=== PATIENT | male | born 1945 | race Caucasian/White ===

== ENCOUNTER 2019-10-20 20:23 | Inpatient (IN) ==
[2019-10-20] MEDS ORDERED: ACETAMINOPHEN 325 MG TABLET PO PRN (23:42)
[2019-10-21] MEDS ORDERED: ALBUTEROL/IPRATROPIUM 3 ML NEB RESP TX PRN (00:10)
[2019-10-21 01:00] LABS: Basophils % 0.1 % (0.0-0.8); Hematocrit 38.7 VOL% (42.0-52.0); Hemoglobin 12.5 GM/DL (14.0-18.0); Immature Granulocytes % 0.6 %; Immature Granulocytes Absolute 0.12 #; Lymphocytes # 0.6 10*3/uL (1.4-4.0); Mean Corpuscular HGB Conc 32.3 GM/DL (32-36); Mean Platelet Volume 9.1 FL (9.6-12.0); Monocytes % 5.3 % (1.7-12.7); Platelet Count 237 T/CUMM (130-400); Red Blood Count 3.87 MC/CUMM (3.8-5.5); Red Cell Distribution Width 13.6 % (9.3-17.3); White Blood Count 19.5 T/CUMM (4-12)
[2019-10-21] MEDS: cefTRIAXone 2,000 MG in SYRINGE 1 EACH IV SCH (01:07)
[2019-10-21] MEDS: ONDANSETRON 4 MG/2 ML VIAL IV PRN ×3 (01:17→20:43)
[2019-10-21 01:23] LABS: Albumin 1.6 G/DL (3.4-5.0); Bilirubin,Total 0.4 MG/DL (0.2-1.0); Calcium 7.6 MG/DL (8.5-10.1); Osmolality,Calculated 283.4 MOS/KG (273-304); Total Protein 5.3 G/DL (6.4-8.3)
[2019-10-21 02:49] LABS: Lymphocytes 5 % (20-55); Platelet Estimate Normal; Segmented Neutrophils 90 % (50-85); Total Cells Counted 100
[2019-10-21 03:51] LABS: Amorphous Crystals,Urine Occasional /HPF (Few); Apearance,Urine CLOUDY (Clear); Bilirubin,Urine Negative (Negative); Blood, Urine Large mg/dL (Negative); Glucose,Urine (UA) Negative (Negative); Ketones,Urine 5 mg/dL (Negative); Mucus,Urine Moderate /LPF (Occasional); Nitrite,Urine Negative (Negative); Protein,Urine 100 MG/DL; RBC,Urine 1047 /HPF (0-4); Squamous Epithelial Cell,Urine Occasional /HPF (0-10); Urine Color Amber (Yellow); Urine Specific Gravity 1.015 (1.001-1.035); Urine Urobilinogen < 2.0 EU/DL (0.2-1.0); WBC,Urine 269 /HPF (0-6)
[2019-10-21 03:54] LABS: Protein/Creatinine Ratio,Urine 5.6 RATIO
[2019-10-21] MEDS ORDERED: LACTATED RINGERS 1,000 ML IV SCH (11:00)
[2019-10-21] MEDS ORDERED: NEOMYCIN/POLYMYXIN IRRIG SOLN 1 ML AMP BLADDERIRR ONE (11:05)
[2019-10-21] MEDS ORDERED: PROPOFOL 200 MG/20 ML VIAL IV ONE (12:13)
[2019-10-21] MEDS ORDERED: SEVOFLURANE 1 UNIT/15 MINUTE INH ONE (12:14)
[2019-10-21] MEDS ORDERED: ONDANSETRON 4 MG/2 ML VIAL ONE (12:14)
[2019-10-21] MEDS ORDERED: MIDAZOLAM 2 MG/2 ML VIAL ONE (12:14)
[2019-10-21] MEDS ORDERED: DEXAMETHASONE 4 MG/1 ML VIAL ONE (12:14)
[2019-10-21] MEDS ORDERED: LIDOCAINE 2% 5 ML VIAL ONE (12:14)
[2019-10-21] MEDS ORDERED: fentaNYL 100 MCG/2 ML VIAL ONE (12:14)
[2019-10-21] MEDS: PANTOPRAZOLE 40 MG TABLET PO SCH (14:30)
[2019-10-21] MEDS: OXYBUTYNIN XL 15 MG TABLET PO SCH (14:31)
[2019-10-21] MEDS: DUTASTERIDE 0.5 MG CAPSULE PO SCH (14:31)
[2019-10-21] MEDS ORDERED: DOCUSATE SODIUM 100 MG CAPSULE PO PRN (21:06)
[2019-10-21] MEDS ORDERED: MIRTAZAPINE 30 MG TABLET PO SCH (21:30)
[2019-10-22] MEDS: cefTRIAXone 2,000 MG in SYRINGE 1 EACH IV SCH (01:00)
[2019-10-22] MEDS ORDERED: PROMETHAZINE INJ 12.5 MG in SODIUM CHLORIDE 0.9% 50 ML IV ONE (05:29)
[2019-10-22 05:53] LABS: Basophils % 0.1 % (0.0-0.8); Hematocrit 35.2 VOL% (42.0-52.0); Hemoglobin 11.5 GM/DL (14.0-18.0); Immature Granulocytes Absolute 0.12 #; Lymphocytes # 0.7 10*3/uL (1.4-4.0); Lymphocytes % 5.6 % (21.2-54.2); Mean Corpuscular HGB Conc 32.7 GM/DL (32-36); Mean Corpuscular Volume 98.9 FL (87-102); Mean Platelet Volume 9.1 FL (9.6-12.0); Monocytes % 6.4 % (1.7-12.7); Neutrophils % 86.9 % (38.7-73.9); Platelet Count 283 T/CUMM (130-400); Red Blood Count 3.56 MC/CUMM (3.8-5.5); Red Cell Distribution Width 13.5 % (9.3-17.3); White Blood Count 11.8 T/CUMM (4-12)
[2019-10-22] MEDS ORDERED: PROMETHAZINE 25 MG TABLET PO PRN (07:48)
[2019-10-22] MEDS ORDERED: ROSUVASTATIN 10 MG TABLET PO SCH (09:00)
[2019-10-22] MEDS ORDERED: DUTASTERIDE 0.5 MG CAPSULE PO SCH (09:00)
[2019-10-22] MEDS ORDERED: BACLOFEN 10 MG TABLET PO SCH (09:00)
[2019-10-22] MEDS ORDERED: AMITRIPTYLINE 10 MG TABLET PO SCH (09:00)
[2019-10-22] MEDS ORDERED: CHOLECALCIFEROL 1,000 UNIT TABLET PO SCH (09:00)
[2019-10-22] MEDS: DUTASTERIDE 0.5 MG CAPSULE PO SCH (09:32)
[2019-10-22] MEDS: OXYBUTYNIN XL 15 MG TABLET PO SCH (09:33)
[2019-10-22] MEDS: PANTOPRAZOLE 40 MG TABLET PO SCH (09:33)
[2019-10-22] MEDS ORDERED: POTASSIUM CHLORIDE 20 MEQ TABLET PO ONE (10:11)
[2019-10-22] MEDS ORDERED: cephALEXin 500 MG CAPSULE PO SCH (12:00)
[2019-10-22 12:25] VITALS: BP 137/81
== END 2019-10-22 15:58 | disposition home health service (06) | DRG 659 ==
LOC: SUATTDRO 21:49 → N.TELEN 21:49
PROVIDERS: ADMIT Internal Medicine; ATTEND Family Medicine

== ENCOUNTER 2019-11-06 19:16 | Inpatient (IN) ==
[2019-11-07] MEDS ORDERED: ZALEPLON 5 MG CAPSULE PO PRN (00:40)
[2019-11-07] MEDS ORDERED: ACETAMINOPHEN 325 MG TABLET PO PRN (00:40)
[2019-11-07] MEDS ORDERED: MORPHINE 4 MG/1 ML VIAL IV PRN (00:40)
[2019-11-07] MEDS ORDERED: SODIUM CHLORIDE 0.9% 1,000 ML IV SCH (01:00)
[2019-11-07] MEDS ORDERED: cefTRIAXone 1,000 MG in SYRINGE 1 EACH IV SCH (01:00)
[2019-11-07 01:30] LABS: Basophils % 0.2 % (0.0-0.8); Eosinophils # 0.1 10*3/uL (0.0-0.87); Eosinophils % 0.6 % (0.00-10.9); Hematocrit 35.1 VOL% (42.0-52.0); Hemoglobin 11.3 GM/DL (14.0-18.0); Immature Granulocytes % 0.7 %; Immature Granulocytes Absolute 0.09 #; Lymphocytes % 7.6 % (21.2-54.2); Mean Corpuscular HGB Conc 32.2 GM/DL (32-36); Mean Corpuscular Volume 98.6 FL (87-102); Mean Platelet Volume 9.2 FL (9.6-12.0); Monocytes % 5.1 % (1.7-12.7); Neutrophils % 85.8 % (38.7-73.9); Platelet Count 244 T/CUMM (130-400); Red Blood Count 3.56 MC/CUMM (3.8-5.5); Red Cell Distribution Width 13.7 % (9.3-17.3); White Blood Count 13.1 T/CUMM (4-12)
[2019-11-07] MEDS: ONDANSETRON 4 MG/2 ML VIAL IV PRN ×2 (01:45→08:23)
[2019-11-07 01:49] LABS: Calcium 8.1 MG/DL (8.5-10.1)
[2019-11-07 05:44] LABS: Basophils % 0.2 % (0.0-0.8); Eosinophils % 0.3 % (0.00-10.9); Hematocrit 34.7 VOL% (42.0-52.0); Hemoglobin 11.3 GM/DL (14.0-18.0); Immature Granulocytes % 0.7 %; Immature Granulocytes Absolute 0.08 #; Lymphocytes # 1.2 10*3/uL (1.4-4.0); Lymphocytes % 10.3 % (21.2-54.2); Mean Corpuscular HGB Conc 32.6 GM/DL (32-36); Mean Corpuscular Volume 97.2 FL (87-102); Monocytes % 5.5 % (1.7-12.7); Platelet Count 226 T/CUMM (130-400); Red Blood Count 3.57 MC/CUMM (3.8-5.5); Red Cell Distribution Width 13.5 % (9.3-17.3); White Blood Count 11.5 T/CUMM (4-12)
[2019-11-07 06:02] LABS: Alanine Aminotransferase < 9 U/L (16-61); Albumin 2.1 G/DL (3.4-5.0); Alkaline Phosphatase 48 U/L (45-117); Aspartate Amino Transferase 13 U/L (0-37); Blood Urea Nitrogen 23 MG/DL (7-18); Calcium 7.9 MG/DL (8.5-10.1); Estimated Glom Filtration Rate 129 ML/MIN; Glucose 67 MG/DL (74-106); Osmolality,Calculated 276.7 MOS/KG (273-304); Total Protein 5.4 G/DL (6.4-8.3)
[2019-11-07] MEDS: ROSUVASTATIN 10 MG TABLET PO SCH (10:47)
[2019-11-07] MEDS: DUTASTERIDE 0.5 MG CAPSULE PO SCH (10:47)
[2019-11-07] MEDS: PANTOPRAZOLE 40 MG VIAL IV SCH (10:47)
[2019-11-07] MEDS: DEXTROSE 5% NACL 0.45% 1,000 ML IV SCH ×2 (10:47→23:46)
[2019-11-07] MEDS: OXYBUTYNIN XL 15 MG TABLET PO SCH ×2 (10:47→10:49)
[2019-11-07] MEDS ORDERED: BISACODYL 10 MG SUPP RECTAL ONE (11:14)
[2019-11-07] MEDS ORDERED: LACTULOSE 20 GM/30 ML UDCUP PO PRN (11:14)
[2019-11-07] MEDS ORDERED: LACTATED RINGERS 1,000 ML IV ONE (11:20)
[2019-11-07] MEDS: TOBRAMYCIN INJ 480 MG in SODIUM CHLORIDE 0.9% 100 ML IV SCH (12:50)
[2019-11-07] MEDS: LACTULOSE 20 GM/30 ML UDCUP PO SCH ×3 (12:51→17:19)
[2019-11-07] MEDS ORDERED: SODIUM PHOSPHATE ENEMA 133 ML BOTTLE RECTAL ONE (14:34)
[2019-11-07] MEDS: DOCUSATE/SENNA 50-8.6 MG TABLET PO SCH ×2 (17:23→21:27)
[2019-11-07] MEDS: FLUCONAZOLE INJ 200 MG in PREMIX 1 EACH IV SCH (17:23)
[2019-11-07] MEDS: METOCLOPRAMIDE 10 MG/2 ML VIAL IV SCH ×3 (17:23→23:44)
[2019-11-07] MEDS: methylPREDNISolone SOD SUC 40 MG/1 ML VIAL IV SCH ×2 (17:24→21:27)
[2019-11-07] MEDS: NYSTATIN 500,000 UNIT/5 ML UDCUP SWISH/SWAL SCH ×2 (17:24→21:27)
[2019-11-07] MEDS ORDERED: DORNASE ALFA 2.5 MG/2.5 ML VIAL RESP TX SCH (19:00)
[2019-11-07] MEDS: DORNASE ALFA 2.5 MG/2.5 ML VIAL RESP TX SCH (19:26)
[2019-11-07] MEDS: ALBUTEROL/IPRATROPIUM 3 ML NEB RESP TX SCH (19:26)
[2019-11-07] MEDS ORDERED: LACTULOSE 20 GM/30 ML UDCUP PO ONE (20:25)
[2019-11-07] MEDS ORDERED: BISACODYL 5 MG TABLET PO ONE (20:26)
[2019-11-08] MEDS: ALBUTEROL/IPRATROPIUM 3 ML NEB RESP TX SCH ×4 (00:27→19:04)
[2019-11-08] MEDS: methylPREDNISolone SOD SUC 40 MG/1 ML VIAL IV SCH ×4 (03:39→21:31)
[2019-11-08] MEDS: DEXTROSE 5% NACL 0.45% 1,000 ML IV SCH (03:43)
[2019-11-08 05:20] LABS: Hematocrit 32.4 VOL% (42.0-52.0); Hemoglobin 10.5 GM/DL (14.0-18.0); Immature Granulocytes % 0.6 %; Immature Granulocytes Absolute 0.07 #; Lymphocytes # 0.3 10*3/uL (1.4-4.0); Lymphocytes % 2.6 % (21.2-54.2); Mean Corpuscular HGB Conc 32.4 GM/DL (32-36); Mean Corpuscular Volume 97.6 FL (87-102); Mean Platelet Volume 9.4 FL (9.6-12.0); Monocytes % 0.8 % (1.7-12.7); Platelet Count 211 T/CUMM (130-400); Red Blood Count 3.32 MC/CUMM (3.8-5.5); Red Cell Distribution Width 13.4 % (9.3-17.3); White Blood Count 11.5 T/CUMM (4-12)
[2019-11-08] MEDS: METOCLOPRAMIDE 10 MG/2 ML VIAL IV SCH ×4 (05:31→23:39)
[2019-11-08 05:38] LABS: Calcium 7.7 MG/DL (8.5-10.1); Osmolality,Calculated 270.4 MOS/KG (273-304)
[2019-11-08 05:54] LABS: Lymphocytes 2 % (20-55); Platelet Estimate Adequate; Segmented Neutrophils 97 % (50-85); Total Cells Counted 100
[2019-11-08] MEDS ORDERED: MAGNESIUM CITRATE 300 ML BOTTLE PO ONE (07:30)
[2019-11-08] MEDS: DORNASE ALFA 2.5 MG/2.5 ML VIAL RESP TX SCH (07:46)
[2019-11-08] MEDS ORDERED: DEXT 5% NACL 0.45% KCL 20 MEQ 20 MEQ/1,000 ML BAG IV SCH (09:00)
[2019-11-08] MEDS ORDERED: BISACODYL 10 MG SUPP RECTAL ONE (09:21)
[2019-11-08] MEDS: ROSUVASTATIN 10 MG TABLET PO SCH (09:46)
[2019-11-08] MEDS: POTASSIUM CHLORIDE 20 MEQ TABLET PO SCH ×2 (09:46→12:12)
[2019-11-08] MEDS: DUTASTERIDE 0.5 MG CAPSULE PO SCH (09:46)
[2019-11-08] MEDS: OXYBUTYNIN XL 15 MG TABLET PO SCH (09:46)
[2019-11-08] MEDS: DOCUSATE/SENNA 50-8.6 MG TABLET PO SCH ×2 (09:47→21:31)
[2019-11-08] MEDS: NYSTATIN 500,000 UNIT/5 ML UDCUP SWISH/SWAL SCH ×4 (09:47→21:31)
[2019-11-08] MEDS: PANTOPRAZOLE 40 MG VIAL IV SCH (09:47)
[2019-11-08] MEDS: ONDANSETRON 4 MG/2 ML VIAL IV PRN ×3 (09:47→21:32)
[2019-11-08] MEDS ORDERED: KETOROLAC 15 MG/1 ML VIAL IV PRN (09:51)
[2019-11-08] MEDS ORDERED: METHYLNALTREXONE 12 MG/0.6 ML VIAL SUBCUT ONE (11:00)
[2019-11-08] MEDS: POLYETHYLENE GLYCOL POWDER 17 GM PACK PO SCH ×3 (12:11→21:31)
[2019-11-08] MEDS: ENOXAPARIN 40 MG/0.4 ML SYRINGE SUBCUT SCH (12:11)
[2019-11-08] MEDS: DEXT 5% LACT RING KCL 20 MEQ 20 MEQ/1,000 ML BAG IV SCH ×2 (12:12→21:31)
[2019-11-08] MEDS: TOBRAMYCIN INJ 480 MG in SODIUM CHLORIDE 0.9% 100 ML IV SCH (12:12)
[2019-11-08] MEDS ORDERED: FUROSEMIDE 40 MG/4 ML VIAL IV ONE (13:34)
[2019-11-08 14:16] LABS: Calcium 7.7 MG/DL (8.5-10.1); Osmolality,Calculated 270.4 MOS/KG (273-304)
[2019-11-08 14:25] LABS: Troponin I 0.073 NG/ML (0.00-0.045)
[2019-11-08 14:39] LABS: Apearance,Urine CLOUDY (Clear); Bilirubin,Urine Negative (Negative); Blood, Urine Large mg/dL (Negative); Glucose,Urine (UA) 50 mg/dL (Negative); Ketones,Urine 20 mg/dL (Negative); Mucus,Urine Many /LPF (Occasional); Nitrite,Urine Negative (Negative); Protein,Urine 100 MG/DL; RBC,Urine 2510 /HPF (0-4); Squamous Epithelial Cell,Urine Occasional /HPF (0-10); Urine Color Amber (Yellow); Urine Specific Gravity 1.016 (1.001-1.035); Urine Urobilinogen < 2.0 EU/DL (0.2-1.0); WBC,Urine 44 /HPF (0-6)
[2019-11-08] MEDS: FLUCONAZOLE INJ 200 MG in PREMIX 1 EACH IV SCH (15:19)
[2019-11-08 16:48] LABS: Troponin I 0.055 NG/ML (0.00-0.045)
[2019-11-08 17:00] LABS: ABG Base Excess 1.1 MMOL/L (-2.5-2.5); ABG HCO3 25.4 MMOL/L (20-26); ABG Oxygen Saturation 97.5 % (95-100); ABG PH 7.523 (7.35-7.45); ABG PO2 81.7 MM HG (80-95); ABG TCO2 20.5 MMOL/L (23-27)
[2019-11-08] MEDS: AZITHROMYCIN INJ 500 MG in SODIUM CHLORIDE 0.9% 250 ML IV SCH (17:39)
[2019-11-08 20:52] LABS: Troponin I 0.054 NG/ML (0.00-0.045)
[2019-11-08 22:31] LABS: Troponin I 0.066 NG/ML (0.00-0.045)
[2019-11-09] MEDS: ALBUTEROL/IPRATROPIUM 3 ML NEB RESP TX SCH ×4 (00:38→20:18)
[2019-11-09] MEDS: methylPREDNISolone SOD SUC 40 MG/1 ML VIAL IV SCH ×4 (03:00→20:45)
[2019-11-09 05:56] LABS: Hematocrit 28.8 VOL% (42.0-52.0); Hemoglobin 9.4 GM/DL (14.0-18.0); Immature Granulocytes % 0.7 %; Immature Granulocytes Absolute 0.07 #; Lymphocytes # 0.4 10*3/uL (1.4-4.0); Lymphocytes % 3.5 % (21.2-54.2); Mean Corpuscular HGB Conc 32.6 GM/DL (32-36); Mean Platelet Volume 9.5 FL (9.6-12.0); Monocytes % 2.5 % (1.7-12.7); Neutrophils % 93.3 % (38.7-73.9); Platelet Count 188 T/CUMM (130-400); Red Cell Distribution Width 13.6 % (9.3-17.3); White Blood Count 10.3 T/CUMM (4-12)
[2019-11-09] MEDS: METOCLOPRAMIDE 10 MG/2 ML VIAL IV SCH ×4 (05:57→22:00)
[2019-11-09 06:14] LABS: Calcium 7.5 MG/DL (8.5-10.1); Osmolality,Calculated 280.5 MOS/KG (273-304)
[2019-11-09 06:28] LABS: Lymphocytes 2 % (20-55); Segmented Neutrophils 97 % (50-85); Total Cells Counted 100
[2019-11-09 06:29] LABS: Platelet Estimate Decreased; Polychromasia Few
[2019-11-09] MEDS: POLYETHYLENE GLYCOL POWDER 17 GM PACK PO SCH ×5 (08:49→23:46)
[2019-11-09] MEDS: NYSTATIN 500,000 UNIT/5 ML UDCUP SWISH/SWAL SCH ×4 (08:49→20:43)
[2019-11-09] MEDS: DOCUSATE/SENNA 50-8.6 MG TABLET PO SCH ×2 (08:49→20:44)
[2019-11-09] MEDS: PANTOPRAZOLE 40 MG VIAL IV SCH (09:25)
[2019-11-09] MEDS: ENOXAPARIN 40 MG/0.4 ML SYRINGE SUBCUT SCH (09:32)
[2019-11-09] MEDS: OXYBUTYNIN XL 15 MG TABLET PO SCH (09:33)
[2019-11-09] MEDS: ROSUVASTATIN 10 MG TABLET PO SCH (09:33)
[2019-11-09] MEDS: DUTASTERIDE 0.5 MG CAPSULE PO SCH (09:33)
[2019-11-09] MEDS: LINACLOTIDE 145 MCG CAPSULE PO SCH (09:33)
[2019-11-09] MEDS: POTASSIUM CHLORIDE RIDER 10 MEQ in PREMIX 1 EACH IV PRN ×4 (10:10→13:56)
[2019-11-09] MEDS: ONDANSETRON 4 MG/2 ML VIAL IV PRN ×2 (14:23→17:32)
[2019-11-09] MEDS: MENTHOL/ZINC OXIDE OINT 71 GM JAR TOP SCH ×2 (14:28→20:46)
[2019-11-09] MEDS: FLUCONAZOLE INJ 200 MG in PREMIX 1 EACH IV SCH (14:28)
[2019-11-09] MEDS: DOCUSATE SODIUM 100 MG CAPSULE PO SCH ×2 (16:17→20:44)
[2019-11-09] MEDS ORDERED: LACTULOSE 20 GM/30 ML UDCUP ONE (16:59)
[2019-11-09] MEDS: CEFEPIME 1,000 MG in SODIUM CHLORIDE 0.9% 100 ML IV SCH ×2 (17:03→22:01)
[2019-11-09] MEDS: DEXT 5% LACT RING KCL 20 MEQ 20 MEQ/1,000 ML BAG IV SCH (17:05)
[2019-11-09] MEDS: LACTULOSE 20 GM/30 ML UDCUP PO SCH ×2 (17:35→21:59)
[2019-11-09] MEDS: AZITHROMYCIN INJ 500 MG in SODIUM CHLORIDE 0.9% 250 ML IV SCH (18:38)
[2019-11-09] MEDS: BUDESONIDE 0.5 MG/2 ML NEB RESP TX SCH (20:18)
[2019-11-09] MEDS: DORNASE ALFA 2.5 MG/2.5 ML VIAL RESP TX SCH (20:28)
[2019-11-09] MEDS ORDERED: TOBRAMYCIN INJ 320 MG in SODIUM CHLORIDE 0.9% 100 ML IV SCH (23:00)
[2019-11-10] MEDS: ALBUTEROL/IPRATROPIUM 3 ML NEB RESP TX SCH ×4 (01:29→20:02)
[2019-11-10] MEDS: LACTULOSE 20 GM/30 ML UDCUP PO SCH ×2 (02:14→05:16)
[2019-11-10] MEDS: POLYETHYLENE GLYCOL POWDER 17 GM PACK PO SCH ×2 (02:15→06:37)
[2019-11-10] MEDS: methylPREDNISolone SOD SUC 40 MG/1 ML VIAL IV SCH ×4 (03:44→21:11)
[2019-11-10] MEDS: DEXT 5% LACT RING KCL 20 MEQ 20 MEQ/1,000 ML BAG IV SCH ×4 (04:10→17:54)
[2019-11-10] MEDS: METOCLOPRAMIDE 10 MG/2 ML VIAL IV SCH ×4 (04:26→22:54)
[2019-11-10 06:03] LABS: Basophils % 0.1 % (0.0-0.8); Hemoglobin 9.5 GM/DL (14.0-18.0); Immature Granulocytes Absolute 0.23 #; Lymphocytes # 0.4 10*3/uL (1.4-4.0); Lymphocytes % 3.1 % (21.2-54.2); Mean Corpuscular HGB Conc 32.8 GM/DL (32-36); Mean Corpuscular Volume 98.3 FL (87-102); Mean Platelet Volume 9.5 FL (9.6-12.0); Monocytes % 3.3 % (1.7-12.7); Neutrophils % 91.5 % (38.7-73.9); Platelet Count 176 T/CUMM (130-400); Red Blood Count 2.95 MC/CUMM (3.8-5.5); Red Cell Distribution Width 14.2 % (9.3-17.3); White Blood Count 11.5 T/CUMM (4-12)
[2019-11-10] MEDS: CEFEPIME 1,000 MG in SODIUM CHLORIDE 0.9% 100 ML IV SCH ×3 (06:17→22:55)
[2019-11-10 06:25] LABS: Calcium 7.7 MG/DL (8.5-10.1)
[2019-11-10 06:29] LABS: Band Neutrophils 1 % (0-10); Hypochromasia 1+; Lymphocytes 4 % (20-55); Platelet Estimate Adequate; Segmented Neutrophils 92 % (50-85); Total Cells Counted 100
[2019-11-10 08:01] LABS: Free T4 (Free Thyroxine) 1.51 NG/DL (0.76-1.46)
[2019-11-10] MEDS: DORNASE ALFA 2.5 MG/2.5 ML VIAL RESP TX SCH ×2 (08:07→20:03)
[2019-11-10] MEDS: BUDESONIDE 0.5 MG/2 ML NEB RESP TX SCH ×2 (08:07→20:03)
[2019-11-10] MEDS: OXYBUTYNIN XL 15 MG TABLET PO SCH (10:43)
[2019-11-10] MEDS: PANTOPRAZOLE 40 MG VIAL IV SCH (10:49)
[2019-11-10] MEDS: NYSTATIN 500,000 UNIT/5 ML UDCUP SWISH/SWAL SCH (10:49)
[2019-11-10] MEDS: DOCUSATE SODIUM 100 MG CAPSULE PO SCH (10:49)
[2019-11-10] MEDS: ROSUVASTATIN 10 MG TABLET PO SCH (10:53)
[2019-11-10] MEDS: DUTASTERIDE 0.5 MG CAPSULE PO SCH (10:54)
[2019-11-10] MEDS: DOCUSATE/SENNA 50-8.6 MG TABLET PO SCH ×2 (10:54→21:11)
[2019-11-10] MEDS: LINACLOTIDE 145 MCG CAPSULE PO SCH (10:55)
[2019-11-10] MEDS: MENTHOL/ZINC OXIDE OINT 71 GM JAR TOP SCH ×2 (10:56→22:54)
[2019-11-10] MEDS: FLUCONAZOLE INJ 200 MG in PREMIX 1 EACH IV SCH (14:13)
[2019-11-10] MEDS: AZITHROMYCIN INJ 500 MG in SODIUM CHLORIDE 0.9% 250 ML IV SCH (16:30)
[2019-11-10] MEDS: PANTOPRAZOLE 40 MG TABLET PO SCH (21:11)
[2019-11-11] MEDS: DEXT 5% LACT RING KCL 20 MEQ 20 MEQ/1,000 ML BAG IV SCH ×3 (01:19→15:07)
[2019-11-11] MEDS: methylPREDNISolone SOD SUC 40 MG/1 ML VIAL IV SCH ×4 (03:56→21:41)
[2019-11-11] MEDS: METOCLOPRAMIDE 10 MG/2 ML VIAL IV SCH ×4 (04:00→23:36)
[2019-11-11] MEDS: PANTOPRAZOLE 40 MG TABLET PO SCH ×2 (06:07→19:00)
[2019-11-11] MEDS: CEFEPIME 1,000 MG in SODIUM CHLORIDE 0.9% 100 ML IV SCH ×3 (06:07→23:29)
[2019-11-11 06:53] LABS: Basophils % 0.2 % (0.0-0.8); Hematocrit 32.3 VOL% (42.0-52.0); Hemoglobin 10.3 GM/DL (14.0-18.0); Immature Granulocytes % 3.7 %; Immature Granulocytes Absolute 0.43 #; Lymphocytes # 0.5 10*3/uL (1.4-4.0); Lymphocytes % 4.3 % (21.2-54.2); Mean Corpuscular HGB Conc 31.9 GM/DL (32-36); Mean Corpuscular Volume 98.8 FL (87-102); Mean Platelet Volume 9.4 FL (9.6-12.0); Monocytes % 4.8 % (1.7-12.7); Platelet Count 160 T/CUMM (130-400); Red Blood Count 3.27 MC/CUMM (3.8-5.5); Red Cell Distribution Width 14.5 % (9.3-17.3); White Blood Count 11.7 T/CUMM (4-12)
[2019-11-11 07:07] LABS: Calcium 8.2 MG/DL (8.5-10.1); Osmolality,Calculated 271.1 MOS/KG (273-304)
[2019-11-11 07:27] LABS: Anisocytosis 1+; Band Neutrophils 3 % (0-10); Lymphocytes 5 % (20-55); Platelet Estimate Normal; Segmented Neutrophils 87 % (50-85); Total Cells Counted 100
[2019-11-11 07:29] LABS: Macrocytosis Slight
[2019-11-11] MEDS: BUDESONIDE 0.5 MG/2 ML NEB RESP TX SCH ×2 (07:40→19:37)
[2019-11-11] MEDS: ALBUTEROL/IPRATROPIUM 3 ML NEB RESP TX SCH ×3 (07:40→19:37)
[2019-11-11] MEDS: DORNASE ALFA 2.5 MG/2.5 ML VIAL RESP TX SCH ×2 (08:49→19:37)
[2019-11-11] MEDS: DUTASTERIDE 0.5 MG CAPSULE PO SCH (09:47)
[2019-11-11] MEDS: DOCUSATE/SENNA 50-8.6 MG TABLET PO SCH (09:47)
[2019-11-11] MEDS: ROSUVASTATIN 10 MG TABLET PO SCH (09:47)
[2019-11-11] MEDS: carvediloL 3.125 MG TABLET PO SCH ×2 (09:47→21:12)
[2019-11-11] MEDS: LINACLOTIDE 145 MCG CAPSULE PO SCH (09:48)
[2019-11-11] MEDS: OXYBUTYNIN XL 15 MG TABLET PO SCH (09:49)
[2019-11-11] MEDS: MENTHOL/ZINC OXIDE OINT 71 GM JAR TOP SCH ×2 (09:58→23:29)
[2019-11-11] MEDS: BISACODYL 5 MG TABLET PO SCH ×2 (11:59→21:41)
[2019-11-11] MEDS: PILOCARPINE 5 MG TABLET PO SCH ×3 (15:07→21:41)
[2019-11-11] MEDS: FLUCONAZOLE INJ 200 MG in PREMIX 1 EACH IV SCH (16:52)
[2019-11-11] MEDS ORDERED: POLYETHYLENE GLYCOL 3350/ELECTROLYTES 4,000 ML BOTTLE NG ONE (18:00)
[2019-11-11] MEDS: AZITHROMYCIN INJ 500 MG in SODIUM CHLORIDE 0.9% 250 ML IV SCH (18:30)
[2019-11-11] MEDS: ONDANSETRON 4 MG/2 ML VIAL IV PRN (19:22)
[2019-11-11] MEDS ORDERED: MAGNESIUM CITRATE 300 ML BOTTLE NG ONE (21:00)
[2019-11-11] MEDS: PANTOPRAZOLE 40 MG VIAL IV SCH (21:47)
[2019-11-12] MEDS: BISACODYL 5 MG TABLET PO SCH (03:13)
[2019-11-12] MEDS: methylPREDNISolone SOD SUC 40 MG/1 ML VIAL IV SCH ×4 (03:29→21:42)
[2019-11-12] MEDS: METOCLOPRAMIDE 10 MG/2 ML VIAL IV SCH ×4 (05:28→23:24)
[2019-11-12 06:06] LABS: Calcium 7.5 MG/DL (8.5-10.1); Osmolality,Calculated 266.4 MOS/KG (273-304)
[2019-11-12 06:24] LABS: Basophils % 0.2 % (0.0-0.8); Hematocrit 32.2 VOL% (42.0-52.0); Hemoglobin 10.5 GM/DL (14.0-18.0); Immature Granulocytes % 4.3 %; Immature Granulocytes Absolute 0.42 #; Lymphocytes # 0.5 10*3/uL (1.4-4.0); Lymphocytes % 5.4 % (21.2-54.2); Mean Corpuscular HGB Conc 32.6 GM/DL (32-36); Mean Corpuscular Volume 96.1 FL (87-102); Mean Platelet Volume 9.3 FL (9.6-12.0); Monocytes % 5.4 % (1.7-12.7); NRBC # 0.02 10*3/uL; Neutrophils % 84.7 % (38.7-73.9); Platelet Count 144 T/CUMM (130-400); Red Blood Count 3.35 MC/CUMM (3.8-5.5); Red Cell Distribution Width 14.2 % (9.3-17.3); White Blood Count 9.7 T/CUMM (4-12)
[2019-11-12] MEDS: DEXT 5% LACT RING KCL 20 MEQ 20 MEQ/1,000 ML BAG IV SCH ×3 (06:41→21:36)
[2019-11-12] MEDS: DORNASE ALFA 2.5 MG/2.5 ML VIAL RESP TX SCH ×2 (08:05→20:26)
[2019-11-12] MEDS: ALBUTEROL/IPRATROPIUM 3 ML NEB RESP TX SCH ×3 (08:05→20:26)
[2019-11-12] MEDS: BUDESONIDE 0.5 MG/2 ML NEB RESP TX SCH ×2 (08:05→20:26)
[2019-11-12] MEDS: PANTOPRAZOLE 40 MG VIAL IV SCH ×2 (08:43→18:00)
[2019-11-12] MEDS: carvediloL 3.125 MG TABLET PO SCH ×2 (08:43→21:24)
[2019-11-12] MEDS: LINACLOTIDE 145 MCG CAPSULE PO SCH (08:44)
[2019-11-12] MEDS: ROSUVASTATIN 10 MG TABLET PO SCH (08:44)
[2019-11-12] MEDS: CEFEPIME 1,000 MG in SODIUM CHLORIDE 0.9% 100 ML IV SCH ×3 (08:44→23:28)
[2019-11-12] MEDS: DUTASTERIDE 0.5 MG CAPSULE PO SCH (08:44)
[2019-11-12] MEDS: PILOCARPINE 5 MG TABLET PO SCH ×4 (08:45→21:41)
[2019-11-12] MEDS: MENTHOL/ZINC OXIDE OINT 71 GM JAR TOP SCH ×2 (09:02→21:46)
[2019-11-12] MEDS: FLUCONAZOLE INJ 200 MG in PREMIX 1 EACH IV SCH (14:03)
[2019-11-12] MEDS: ENOXAPARIN 40 MG/0.4 ML SYRINGE SUBCUT SCH (14:56)
[2019-11-12] MEDS: AZITHROMYCIN INJ 500 MG in SODIUM CHLORIDE 0.9% 250 ML IV SCH (15:37)
[2019-11-13] MEDS: methylPREDNISolone SOD SUC 40 MG/1 ML VIAL IV SCH ×4 (04:23→21:29)
[2019-11-13] MEDS: METOCLOPRAMIDE 10 MG/2 ML VIAL IV SCH ×3 (04:23→16:23)
[2019-11-13 06:16] LABS: Basophils % 0.1 % (0.0-0.8); Hematocrit 31.6 VOL% (42.0-52.0); Hemoglobin 10.4 GM/DL (14.0-18.0); Lymphocytes # 0.5 10*3/uL (1.4-4.0); Lymphocytes % 5.2 % (21.2-54.2); Mean Corpuscular HGB Conc 32.9 GM/DL (32-36); Mean Corpuscular Volume 95.2 FL (87-102); Mean Platelet Volume 9.9 FL (9.6-12.0); Monocytes % 6.3 % (1.7-12.7); NRBC # 0.02 10*3/uL; Neutrophils % 86.4 % (38.7-73.9); Platelet Count 144 T/CUMM (130-400); Red Blood Count 3.32 MC/CUMM (3.8-5.5); Red Cell Distribution Width 14.3 % (9.3-17.3)
[2019-11-13 06:28] LABS: Calcium 7.7 MG/DL (8.5-10.1); Osmolality,Calculated 266.4 MOS/KG (273-304)
[2019-11-13] MEDS: CEFEPIME 1,000 MG in SODIUM CHLORIDE 0.9% 100 ML IV SCH ×3 (06:42→23:28)
[2019-11-13] MEDS: PANTOPRAZOLE 40 MG VIAL IV SCH ×2 (06:44→21:26)
[2019-11-13] MEDS: BUDESONIDE 0.5 MG/2 ML NEB RESP TX SCH ×2 (08:18→19:00)
[2019-11-13] MEDS: ALBUTEROL/IPRATROPIUM 3 ML NEB RESP TX SCH ×3 (08:18→19:00)
[2019-11-13] MEDS: DORNASE ALFA 2.5 MG/2.5 ML VIAL RESP TX SCH ×2 (08:19→19:11)
[2019-11-13] MEDS: LINACLOTIDE 145 MCG CAPSULE PO SCH (08:27)
[2019-11-13] MEDS: PILOCARPINE 5 MG TABLET PO SCH ×4 (08:27→23:04)
[2019-11-13] MEDS: DEXT 5% LACT RING KCL 20 MEQ 20 MEQ/1,000 ML BAG IV SCH ×3 (08:52→20:00)
[2019-11-13] MEDS: ROSUVASTATIN 10 MG TABLET PO SCH (08:53)
[2019-11-13] MEDS: carvediloL 3.125 MG TABLET PO SCH ×2 (08:53→21:30)
[2019-11-13] MEDS: DUTASTERIDE 0.5 MG CAPSULE PO SCH (08:53)
[2019-11-13] MEDS: MENTHOL/ZINC OXIDE OINT 71 GM JAR TOP SCH ×2 (09:18→21:26)
[2019-11-13] MEDS: FLUCONAZOLE INJ 200 MG in PREMIX 1 EACH IV SCH (14:37)
[2019-11-13] MEDS: ENOXAPARIN 40 MG/0.4 ML SYRINGE SUBCUT SCH (14:38)
[2019-11-14] MEDS: methylPREDNISolone SOD SUC 40 MG/1 ML VIAL IV SCH ×3 (02:49→14:10)
[2019-11-14] MEDS: CEFEPIME 1,000 MG in SODIUM CHLORIDE 0.9% 100 ML IV SCH ×3 (06:23→14:09)
[2019-11-14] MEDS: ALBUTEROL/IPRATROPIUM 3 ML NEB RESP TX SCH (07:57)
[2019-11-14] MEDS: BUDESONIDE 0.5 MG/2 ML NEB RESP TX SCH (07:57)
[2019-11-14] MEDS: DORNASE ALFA 2.5 MG/2.5 ML VIAL RESP TX SCH (08:10)
[2019-11-14] MEDS: LINACLOTIDE 145 MCG CAPSULE PO SCH (08:43)
[2019-11-14] MEDS: METOCLOPRAMIDE 10 MG/10 ML UDCUP PO SCH ×2 (08:43→12:16)
[2019-11-14] MEDS: PILOCARPINE 5 MG TABLET PO SCH ×2 (08:44→13:44)
[2019-11-14] MEDS: ROSUVASTATIN 10 MG TABLET PO SCH (08:44)
[2019-11-14] MEDS: carvediloL 3.125 MG TABLET PO SCH (08:44)
[2019-11-14] MEDS: DEXT 5% LACT RING KCL 20 MEQ 20 MEQ/1,000 ML BAG IV SCH (08:45)
[2019-11-14] MEDS: MENTHOL/ZINC OXIDE OINT 71 GM JAR TOP SCH (08:46)
[2019-11-14] MEDS: DUTASTERIDE 0.5 MG CAPSULE PO SCH (08:50)
[2019-11-14] MEDS ORDERED: AZITHROMYCIN 40 MG/ML 15 ML/BOTTLE PO SCH (09:00)
[2019-11-14 13:04] VITALS: BP 125/74
[2019-11-14] MEDS: ENOXAPARIN 40 MG/0.4 ML SYRINGE SUBCUT SCH (13:45)
[2019-11-14] MEDS: FLUCONAZOLE INJ 200 MG in PREMIX 1 EACH IV SCH (14:08)
== END 2019-11-14 14:30 | disposition home health service (06) | DRG 388 ==
LOC: N.5E → OBSVTOIN 23:45
PROVIDERS: ADMIT Internal Medicine; ATTEND Hospitalist

== ENCOUNTER 2020-10-18 10:33 | Inpatient (IN) ==
[2020-10-18] MEDS ORDERED: SODIUM CHLORIDE 0.9% 1,000 ML IV STA (11:01)
[2020-10-18] MEDS ORDERED: ONDANSETRON 4 MG/2 ML VIAL IV STA (11:02)
[2020-10-18 14:51] LABS: Alanine Aminotransferase < 9 U/L (16-61); Albumin 2.1 G/DL (3.4-5.0); Alkaline Phosphatase 81 U/L (45-117); Aspartate Amino Transferase 27 U/L (0-37); Blood Urea Nitrogen 13 MG/DL (7-18); Calcium 8.4 MG/DL (8.5-10.1); Estimated Glom Filtration Rate 88 ML/MIN; Glucose 84 MG/DL (74-106); Osmolality,Calculated 275.5 MOS/KG (273-304); Total Protein 5.9 G/DL (6.4-8.3)
[2020-10-18 15:03] LABS: Basophils % 0.2 % (0.0-0.8); Eosinophils % 0.1 % (0.00-10.9); Hemoglobin 13.8 GM/DL (14.0-18.0); Immature Granulocytes % 0.9 %; Immature Granulocytes Absolute 0.11 #; Lymphocytes # 1.4 10*3/uL (1.4-4.0); Lymphocytes % 11.7 % (21.2-54.2); Mean Corpuscular HGB Conc 32.9 GM/DL (32-36); Mean Corpuscular Volume 103.4 FL (87-102); Mean Platelet Volume 9.2 FL (9.6-12.0); Monocytes % 4.6 % (1.7-12.7); Neutrophils % 82.5 % (38.7-73.9); Platelet Count 242 T/CUMM (130-400); Red Blood Count 4.06 MC/CUMM (3.8-5.5); Red Cell Distribution Width 18.6 % (9.3-17.3); White Blood Count 12.2 T/CUMM (4-12)
[2020-10-18 16:45] LABS: Hypochromasia 1+; Macrocytosis 1+
[2020-10-18 16:47] LABS: Platelet Estimate Normal
[2020-10-18] MEDS ORDERED: GLUCAGON 1 MG VIAL IM PRN (17:50)
[2020-10-18] MEDS ORDERED: DEXTROSE 50% 25 GM/50 ML VIAL IV PRN (17:50)
[2020-10-18] MEDS ORDERED: BACLOFEN 10 MG TABLET PO PRN (19:15)
[2020-10-18] MEDS ORDERED: DOCUSATE SODIUM 100 MG CAPSULE PO PRN (19:15)
[2020-10-18] MEDS: PIPERACILLIN/TAZOBACTAM 3,375 MG in SODIUM CHLORIDE 0.9% 100 ML IV SCH (20:05)
[2020-10-18] MEDS ORDERED: INFLUENZA VIRUS VACCINE 0.5 ML SYRINGE IM ONE (22:54)
[2020-10-18] MEDS: PANTOPRAZOLE 40 MG TABLET PO SCH (23:05)
[2020-10-18] MEDS: AMITRIPTYLINE 10 MG TABLET PO SCH (23:05)
[2020-10-18] MEDS: ENOXAPARIN 40 MG/0.4 ML SYRINGE SUBCUT SCH (23:05)
[2020-10-18] MEDS: MIRTAZAPINE 30 MG TABLET PO SCH (23:05)
[2020-10-18] MEDS: traZODone 50 MG TABLET PO SCH (23:05)
[2020-10-19] MEDS: PIPERACILLIN/TAZOBACTAM 3,375 MG in SODIUM CHLORIDE 0.9% 100 ML IV SCH ×3 (05:38→21:27)
[2020-10-19] MEDS: ONDANSETRON 4 MG/2 ML VIAL IV PRN ×2 (06:10→13:07)
[2020-10-19 08:27] LABS: Calcium 7.9 MG/DL (8.5-10.1); Osmolality,Calculated 272.8 MOS/KG (273-304); Risk Ratio 1.55; Thyroid Stimulating Hormone 0.521 uIU/ml (0.358-3.74); VLDL CHOLESTEROL 19.4 MG/DL
[2020-10-19] MEDS: ROSUVASTATIN 10 MG TABLET PO SCH (10:05)
[2020-10-19] MEDS: LINACLOTIDE 145 MCG CAPSULE PO SCH (10:05)
[2020-10-19] MEDS: CELECOXIB 100 MG CAPSULE PO SCH (10:05)
[2020-10-19] MEDS: DUTASTERIDE 0.5 MG CAPSULE PO SCH (10:05)
[2020-10-19] MEDS: CHOLECALCIFEROL 1,000 UNIT TABLET PO SCH (10:06)
[2020-10-19] MEDS: PANTOPRAZOLE 40 MG TABLET PO SCH ×2 (10:06→21:28)
[2020-10-19 10:54] LABS: Bacteria,Urine Many /HPF (Few); Bilirubin,Urine Negative (Negative); Blood, Urine Large mg/dL (Negative); Glucose,Urine (UA) Negative (Negative); Ketones,Urine 5 mg/dL (Negative); Mucus,Urine Occasional /LPF (Occasional); Nitrite,Urine Negative (Negative); Protein,Urine 100 MG/DL; RBC,Urine 325 /HPF (0-4); Squamous Epithelial Cell,Urine Occasional /HPF (0-10); Urine Appearance CLOUDY (Clear); Urine Color Amber (Yellow); Urine Urobilinogen < 2.0 EU/DL (0.2-1.0); WBC,Urine 1563 /HPF (0-6)
[2020-10-19] MEDS: PROMETHAZINE 25 MG TABLET PO PRN (13:44)
[2020-10-19] MEDS: SKIN HEALING OINT (AQUAPHOR) 50 GM TUBE TOP SCH (16:37)
[2020-10-19] MEDS ORDERED: PROCHLORPERAZINE 25 MG SUPP RECTAL ONE (16:40)
[2020-10-19] MEDS ORDERED: METOCLOPRAMIDE 10 MG/2 ML VIAL IV ONE (16:40)
[2020-10-19] MEDS: MIRTAZAPINE 30 MG TABLET PO SCH (21:28)
[2020-10-19] MEDS: AMITRIPTYLINE 10 MG TABLET PO SCH (21:28)
[2020-10-19] MEDS: ENOXAPARIN 40 MG/0.4 ML SYRINGE SUBCUT SCH (21:28)
[2020-10-19] MEDS: traZODone 50 MG TABLET PO SCH (21:28)
[2020-10-20] MEDS: PIPERACILLIN/TAZOBACTAM 3,375 MG in SODIUM CHLORIDE 0.9% 100 ML IV SCH (05:46)
[2020-10-20] MEDS: CHOLECALCIFEROL 1,000 UNIT TABLET PO SCH (08:13)
[2020-10-20] MEDS: CELECOXIB 100 MG CAPSULE PO SCH (08:13)
[2020-10-20] MEDS: ROSUVASTATIN 10 MG TABLET PO SCH (08:14)
[2020-10-20] MEDS: PANTOPRAZOLE 40 MG TABLET PO SCH ×2 (08:14→20:12)
[2020-10-20] MEDS: LINACLOTIDE 145 MCG CAPSULE PO SCH (08:14)
[2020-10-20] MEDS: DUTASTERIDE 0.5 MG CAPSULE PO SCH (08:14)
[2020-10-20] MEDS: PROMETHAZINE 25 MG TABLET PO PRN (08:16)
[2020-10-20] MEDS: SKIN HEALING OINT (AQUAPHOR) 50 GM TUBE TOP SCH (11:52)
[2020-10-20] MEDS: METOCLOPRAMIDE 10 MG/10 ML UDCUP PO SCH ×3 (11:52→20:11)
[2020-10-20] MEDS: ENOXAPARIN 40 MG/0.4 ML SYRINGE SUBCUT SCH (20:11)
[2020-10-20] MEDS: MIRTAZAPINE 30 MG TABLET PO SCH (20:11)
[2020-10-20] MEDS: AMITRIPTYLINE 10 MG TABLET PO SCH (20:12)
[2020-10-20] MEDS: traZODone 50 MG TABLET PO SCH (20:12)
[2020-10-21 06:18] LABS: Calcium 6.8 MG/DL (8.5-10.1); Osmolality,Calculated 284.3 MOS/KG (273-304)
[2020-10-21] MEDS: METOCLOPRAMIDE 10 MG/10 ML UDCUP PO SCH ×4 (09:30→21:43)
[2020-10-21] MEDS: PANTOPRAZOLE 40 MG TABLET PO SCH ×2 (10:03→21:43)
[2020-10-21] MEDS: DUTASTERIDE 0.5 MG CAPSULE PO SCH (10:05)
[2020-10-21] MEDS: CHOLECALCIFEROL 1,000 UNIT TABLET PO SCH (10:05)
[2020-10-21] MEDS: CELECOXIB 100 MG CAPSULE PO SCH (10:05)
[2020-10-21] MEDS: LINACLOTIDE 145 MCG CAPSULE PO SCH (10:07)
[2020-10-21] MEDS: ROSUVASTATIN 10 MG TABLET PO SCH (10:09)
[2020-10-21] MEDS: SKIN HEALING OINT (AQUAPHOR) 50 GM TUBE TOP SCH (10:09)
[2020-10-21] MEDS: MIRTAZAPINE 30 MG TABLET PO SCH (21:43)
[2020-10-21] MEDS: AMITRIPTYLINE 10 MG TABLET PO SCH (21:43)
[2020-10-21] MEDS: traZODone 50 MG TABLET PO SCH (21:43)
[2020-10-21] MEDS: ENOXAPARIN 40 MG/0.4 ML SYRINGE SUBCUT SCH (21:44)
[2020-10-21] MEDS ORDERED: ZALEPLON 5 MG CAPSULE PO STA (22:42)
[2020-10-22] MEDS: CELECOXIB 100 MG CAPSULE PO SCH (09:18)
[2020-10-22] MEDS: CHOLECALCIFEROL 1,000 UNIT TABLET PO SCH (09:18)
[2020-10-22] MEDS: PANTOPRAZOLE 40 MG TABLET PO SCH ×2 (09:19→20:41)
[2020-10-22] MEDS: METOCLOPRAMIDE 10 MG/10 ML UDCUP PO SCH ×4 (09:19→20:47)
[2020-10-22] MEDS: ROSUVASTATIN 10 MG TABLET PO SCH (09:19)
[2020-10-22] MEDS: DUTASTERIDE 0.5 MG CAPSULE PO SCH (09:19)
[2020-10-22] MEDS: SKIN HEALING OINT (AQUAPHOR) 50 GM TUBE TOP SCH (09:20)
[2020-10-22] MEDS: LINACLOTIDE 145 MCG CAPSULE PO SCH (10:30)
[2020-10-22] MEDS: ENOXAPARIN 40 MG/0.4 ML SYRINGE SUBCUT SCH (20:41)
[2020-10-22] MEDS: MIRTAZAPINE 30 MG TABLET PO SCH (20:41)
[2020-10-22] MEDS: traZODone 50 MG TABLET PO SCH (20:41)
[2020-10-22] MEDS: AMITRIPTYLINE 10 MG TABLET PO SCH (20:41)
[2020-10-23 05:54] LABS: Basophils % 0.2 % (0.0-0.8); Eosinophils # 0.3 10*3/uL (0.0-0.87); Eosinophils % 4.7 % (0.00-10.9); Hematocrit 30.5 VOL% (42.0-52.0); Hemoglobin 10.3 GM/DL (14.0-18.0); Immature Granulocytes % 1.2 %; Immature Granulocytes Absolute 0.08 #; Lymphocytes # 1.8 10*3/uL (1.4-4.0); Lymphocytes % 27.4 % (21.2-54.2); Mean Corpuscular HGB Conc 33.8 GM/DL (32-36); Mean Corpuscular Volume 101.7 FL (87-102); Mean Platelet Volume 10.9 FL (9.6-12.0); Neutrophils % 58.5 % (38.7-73.9); Platelet Count 110 T/CUMM (130-400); Red Cell Distribution Width 18.8 % (9.3-17.3); White Blood Count 6.6 T/CUMM (4-12)
[2020-10-23 06:10] LABS: Calcium 7.4 MG/DL (8.5-10.1); Osmolality,Calculated 280.3 MOS/KG (273-304)
[2020-10-23] MEDS: CELECOXIB 100 MG CAPSULE PO SCH (09:17)
[2020-10-23] MEDS: DUTASTERIDE 0.5 MG CAPSULE PO SCH (09:17)
[2020-10-23] MEDS: METOCLOPRAMIDE 10 MG/10 ML UDCUP PO SCH ×4 (09:17→21:14)
[2020-10-23] MEDS: ROSUVASTATIN 10 MG TABLET PO SCH (09:17)
[2020-10-23] MEDS: SKIN HEALING OINT (AQUAPHOR) 50 GM TUBE TOP SCH (09:17)
[2020-10-23] MEDS: LINACLOTIDE 145 MCG CAPSULE PO SCH (09:17)
[2020-10-23] MEDS: CHOLECALCIFEROL 1,000 UNIT TABLET PO SCH (09:17)
[2020-10-23] MEDS: PANTOPRAZOLE 40 MG TABLET PO SCH ×2 (09:17→21:14)
[2020-10-23] MEDS: POTASSIUM CHLORIDE 20 MEQ/15 ML UDCUP PER TUBE PRN ×4 (09:18→21:14)
[2020-10-23] MEDS: AMITRIPTYLINE 10 MG TABLET PO SCH (21:13)
[2020-10-23] MEDS: MIRTAZAPINE 30 MG TABLET PO SCH (21:14)
[2020-10-23] MEDS: traZODone 50 MG TABLET PO SCH (21:14)
[2020-10-23] MEDS: ENOXAPARIN 40 MG/0.4 ML SYRINGE SUBCUT SCH (21:14)
[2020-10-24 05:43] LABS: Basophils % 0.2 % (0.0-0.8); Eosinophils # 0.3 10*3/uL (0.0-0.87); Eosinophils % 2.7 % (0.00-10.9); Hematocrit 33.7 VOL% (42.0-52.0); Immature Granulocytes % 0.9 %; Immature Granulocytes Absolute 0.08 #; Lymphocytes % 21.6 % (21.2-54.2); Mean Corpuscular HGB Conc 32.6 GM/DL (32-36); Mean Corpuscular Volume 103.4 FL (87-102); Mean Platelet Volume 10.8 FL (9.6-12.0); Neutrophils % 66.6 % (38.7-73.9); Platelet Count 124 T/CUMM (130-400); Red Blood Count 3.26 MC/CUMM (3.8-5.5); White Blood Count 9.2 T/CUMM (4-12)
[2020-10-24 06:09] LABS: Calcium 7.6 MG/DL (8.5-10.1); Osmolality,Calculated 276.5 MOS/KG (273-304)
[2020-10-24] MEDS: POTASSIUM CHLORIDE 20 MEQ/15 ML UDCUP PER TUBE PRN (06:24)
[2020-10-24] MEDS: DUTASTERIDE 0.5 MG CAPSULE PO SCH (08:57)
[2020-10-24] MEDS: LINACLOTIDE 145 MCG CAPSULE PO SCH (08:57)
[2020-10-24] MEDS: ROSUVASTATIN 10 MG TABLET PO SCH (08:57)
[2020-10-24] MEDS: METOCLOPRAMIDE 10 MG/10 ML UDCUP PO SCH ×4 (08:57→21:08)
[2020-10-24] MEDS: PANTOPRAZOLE 40 MG TABLET PO SCH ×2 (08:57→21:08)
[2020-10-24] MEDS: CELECOXIB 100 MG CAPSULE PO SCH (08:57)
[2020-10-24] MEDS: SKIN HEALING OINT (AQUAPHOR) 50 GM TUBE TOP SCH (08:57)
[2020-10-24] MEDS: CHOLECALCIFEROL 1,000 UNIT TABLET PO SCH (08:57)
[2020-10-24] MEDS ORDERED: ZALEPLON 5 MG CAPSULE PO SCH (21:00)
[2020-10-24] MEDS: traZODone 50 MG TABLET PO SCH (21:08)
[2020-10-24] MEDS: AMITRIPTYLINE 10 MG TABLET PO SCH (21:08)
[2020-10-25] MEDS ORDERED: LACTATED RINGERS 1,000 ML IV SCH (07:00)
[2020-10-25] MEDS: METOCLOPRAMIDE 10 MG/10 ML UDCUP PO SCH ×2 (08:29→10:41)
[2020-10-25] MEDS ORDERED: ETOMIDATE 20 MG/10 ML VIAL IV ONE (09:34)
[2020-10-25] MEDS ORDERED: LIDOCAINE 2% 5 ML VIAL ONE (09:34)
[2020-10-25] MEDS ORDERED: PHENYLEPHRINE 1 MG/10 ML SYRINGE IV ONE (09:34)
[2020-10-25] MEDS: LINACLOTIDE 145 MCG CAPSULE PO SCH (10:34)
[2020-10-25] MEDS: PANTOPRAZOLE 40 MG TABLET PO SCH (10:34)
[2020-10-25] MEDS: ROSUVASTATIN 10 MG TABLET PO SCH (10:34)
[2020-10-25] MEDS: CELECOXIB 100 MG CAPSULE PO SCH (10:35)
[2020-10-25] MEDS: CHOLECALCIFEROL 1,000 UNIT TABLET PO SCH (10:35)
[2020-10-25] MEDS: SKIN HEALING OINT (AQUAPHOR) 50 GM TUBE TOP SCH (10:35)
[2020-10-25] MEDS: DUTASTERIDE 0.5 MG CAPSULE PO SCH (10:35)
[2020-10-25 12:34] VITALS: BP 94/46
== END 2020-10-25 15:12 | disposition home health service (06) | DRG 388 ==
LOC: EDBD → EDUNIT# → N.EDINP 10:33 → N.ED 10:33 → SUATTDRO 18:11 → N.5E 18:39 → SUATTDRO 10-20 12:17
PROVIDERS: ADMIT Internal Medicine; ATTEND Family Medicine